=== PATIENT | female | born 1955 | race African-American/Black ===

== ENCOUNTER 2018-05-10 16:11 | Emergency (ER) | payer MEDICAID, MEDICARE, OTHER ==
[~2018-05-10 16:11] MED LIST: METF500T6; OMEP20CA4 PO; VERA-4
== END 2018-05-10 18:33 | disposition left against medical advice (07) ==
LOC: ER 18:23
DX: Z53.21 Procedure and treatment not carried out due to patient leaving prior to being seen by health care provider (principal)

== ENCOUNTER 2019-07-01 19:29 | Emergency (ER) | payer MEDICARE, OTHER ==
[~2019-07-01] VITALS: Ht 165.1 cm; Wt 73.0 kg
[~2019-07-01 19:29] MED LIST changes: +METF-414; -METF500T6; -VERA-4; +VERA240T14
[2019-07-01] MEDS ORDERED: SODIUM CHLORIDE 0.9% 1,000 ML IV ONE (21:22)
[2019-07-01] MEDS ORDERED: ONDANSETRON HCL 4MG/2ML INJ IV STA (21:22)
[2019-07-01] MEDS ORDERED: KETOROLAC 30MG/ML VIAL IV STA (21:22)
[2019-07-01 23:51] LABS: BASOPHILS % 1.3 % (0.0-2.0); EOSINOPHILS % 2.3 % (0.0-5.0); HEMATOCRIT. 33.5 % (36.0-48.0); HEMOGLOBIN. 10.8 g/dL (12.0-16.0); LYMPHOCYTES % 29.8 % (20.0-50.0); MEAN CORPUSCULAR HEMOGLOBIN 29.4 pg (28.0-32.0); MEAN CORPUSCULAR VOLUME 91.4 fL (81.0-99.0); MEAN PLATELET VOLUME 7.4 fl (7.4-10.4); MONOCYTES % 11.4 % (2.0-8.0); NEUTROPHILS % 55.2 % (40.0-76.0); PLATELET 277 x1000/uL (130-400); RED BLOOD CELL COUNT 3.66 mill/uL (4.2-5.4); RED CELL DISTRIBUTION WIDTH 17.1 % (11.6-14.6)
[2019-07-01 23:58] LABS: CHLORIDE 115 mEq/L (98-107)
[2019-07-02] LABS: COLOR URINE YELLOW (YELLOW); KETONES URINE NEGATIVE (NEGATIVE); LEUKOCYTE ESTERASE URINE NEGATIVE (NEGATIVE); NITRITE URINE NEGATIVE (NEGATIVE); OCCULT BLOOD URINE NEGATIVE (NEGATIVE); PH URINE 5.5 (4.5-8.0); PROTEIN URINE NEGATIVE (NEGATIVE); UROBILINOGEN URINE 0.2 E.U./dL (0.2-1.0)
[2019-07-02 00:03] LABS: CLARITY URINE CLEAR (CLEAR)
[2019-07-02] MEDS ORDERED: MORPHINE SULFATE 4 MG/ML CPJ (NOT FOR IM USE) IV SCH (01:45)
[2019-07-02 03:00] VITALS: BP 140/72
== END 2019-07-02 03:46 | disposition short-term general hospital (02) ==
LOC: ER 19:29
DX: R10.13 Epigastric pain (principal)
CPT/HCPCS: 36415; 74176; 80053; 81003; 83690; 84484; 85025; 93005; 96374; 96375; 99285; J1885; J2270; J2405; J7030